=== PATIENT | male | born 1950 | race Two or more races ===

== ENCOUNTER → 2016-04-16 08:07 | Day surgery (SDC) | payer MEDICARE, BC ==
[~2016-04-16 08:07] MED LIST: Acetaminophen TAB* 325 MG PO PRN; Buffered Lidocaine 1% SYR 3ML* 3 ML/SYR SYRINGE INTRADERM ONE; Bupivacaine 0.5% W/EPI SDV* 30 ML VIAL ONE; Dexamethasone IV* 4 MG/ML 1 ML (4 MG) ONE; DiMENhydriNATE IV* 50 MG/ML VIAL IV PUSH PRN; DiMENhydriNATE IV* 50 MG/ML VIAL ONE; EPINEPHrine AMP 1 MG/ML ONE; Famotidine IV* 10 MG/ML 2 ML (20 mg) IV ONE; Famotidine IV* 10 MG/ML 2 ML (20 mg) ONE; HYDROmorphone INJ* 1 MG/ML CARPUJECT SYRINGE IV PRN; KETAMINE HCL* 50 MG/ML 10 ML VIAL ONE; Ketorolac INJ* 30 MG/ML 1 ML VIAL ONE; Lidocaine 2% PF * 5 ML VIAL ONE; Midazolam* 1 MG/ML 5 ML VIAL (5 MG) ONE; Ondansetron INJ* 2 MG/ML VIAL ONE; Phenylephrine IV* 40 MCG/ML 10 ML SYRINGE ONE; Propofol* 10 MG/ML 20 ML BTL IV PUSH ONE; ROPIVACAINE 5 MG/ML 30 ML BTL (0.5%) ONE; ceFAZolin 2 GM PREMIX (*) 2 GM/50 ML BAG IVPB ONE; fentaNYL* 50 MCG/ML 2 ML VIAL (100 MCG VIAL) ONE; oxyCODONE/Acetamin 5/325 MG* TAB PO PRN
[2016-04-16 19:38] VITALS: BP 122/70
--- NOTE | 2016-04-19 04:18 | OP ---
DATE OF OPERATION: 04/16/16 - [facility] DATE OF : 52 SURGEON: Mahin Tomas MD MANUFACTURING DEVELOPMENT ENGINEER: EMELINA Rowell ANESTHESIOLOGIST: Viola Bronson MD ANESTHESIA: General anesthesia, LMA, regional interscalene block. PRE-OP DIAGNOSES: 1. Right shoulder rotator cuff tear, acute on chronic. 2. Right shoulder subacromial impingement. 3. Right shoulder acromioclavicular joint arthritis. 4. Right shoulder possible proximal biceps tendinitis and/or superior labral tear. POST-OP DIAGNOSES: 1. Right shoulder massive rotator cuff tear, involving supraspinatus and infraspinatus, retracted. 2. Right shoulder subacromial impingement. 3. Right shoulder acromioclavicular joint arthritis. 4. Right shoulder superior labral tear and proximal biceps tendinosis. OPERATIVE PROCEDURE: 1. Right shoulder arthroscopic examination under anesthesia. 2. Right shoulder arthroscopic massive rotator cuff tendon repair, supraspinatus, infraspinatus, double row. 3. Right shoulder arthroscopic subacromial decompression. 4. Right shoulder arthroscopic distal clavicle resection. 5. Right shoulder extensive debridement, arthroscopic, including superior labrum, and subacromial bursitis, and tissue adhering the undersurface of the rotator cuff to the labrum. 6. Right shoulder arthroscopic proximal biceps tendon release. INDICATIONS: The patient is a 66-year-old man, a former [employer] employee, right-hand dominant, who presented to me with pain in the right shoulder for 1.5 years, that started when he was doing much house painting and then recurred in July of 2015 and persisted. Much pain with activities of daily living, especially overhead activity. Much pain in sleep. The patient then fell on to the shoulder in mid January which worsened it again. He responded insufficiently in a nonoperative management which included a cortisone injection subacromially, ibuprofen as needed, and physical therapy, a long course of it. Physical examination showed some pain and weakness with supraspinatus and some pain with infraspinatus stress testing. Positive Neer and Mcgrath tests. X-ray showed AC joint arthritis, an inferior osteophyte of both the clavicle and the acromion and a small lateral acromial spur. There was some trace superiorization of the humeral head visible on x-ray. MRI demonstrated AC joint osteoarthritis and a full thickness complete with rotator cuff tear of the supraspinatus measured at 2.4 cm x 2.3 cm. Sagittal slices showed 50% atrophy of the supraspinatus muscle mass and acromial humeral distance on MRI was 8.1 mm. 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 The patient opted for surgical management. I told him given the amount of fatty infiltration of the supraspinatus on sagittal views, it was not a foregone conclusion that this would be a repairable rotator cuff tear. I therefore booked this is an attempted rotator cuff repair. ANTIBIOSIS: 2 g Ancef IV. IV FLUIDS: See Anesthesia note. COMPLICATIONS: None. SPECIMEN: None. IMPLANTS: Mitek Healix 5.5-mm double loaded suture anchors x2. Mitek Healix knotless 5-mm suture anchor x1. FiberWire #2 sutures x2, Arthrex. ESTIMATED BLOOD LOSS: Minimal. DESCRIPTION OF PROCEDURE: Preoperative written consent. Operative extremity was marked in the preoperative holding. The patient was taken back to the operating room and placed supine on operating room table. Regional anesthetic block performed. The patient was placed in the lateral decubitus position with the right shoulder up. All bony prominences padded, axillary roll placed, caldwell bag insufflated. The right upper extremity was placed in 10 pounds of traction. Right shoulder was prepped and draped. A surgical time-out was performed. 20 cc of normal saline was infused into the glenohumeral joint from posterior. A posterior glenohumeral joint portal was established using standard technique. Diagnostic arthroscopy was commenced. An anterior glenohumeral joint portal was established under direct visualization. Intraarticularly, I saw clearly a large full thickness supraspinatus rotator cuff tear. There was a superior labrum tear with over 5 mm of lift off using the arthroscopic probe. Also, when I pulled the biceps tendon into the joint, there were some erythematous bands of vertical tissue demonstrating some tendinosis in it. Therefore, I used arthroscopic scissors to cut the proximal biceps tendon near its origin. I then used a shaver to debride the superior labral tear. Instruments and fluid were removed from the glenohumeral joint. I entered the subacromial space from posterior and anterior and then established a lateral subacromial joint portal. I debrided a significant amount of bursitic tissue. I visualized the rotator cuff tendon tear. After I debrided a significant amount of bursitic tissue, I was able to better visualize the tear. It included clearly the full width of the supraspinatus tendon but also included the anterior part of the infraspinatus tendons, so definitely a two-tendon tear. I freshened the rotator cuff footprint with an arthroscopic bur. I noted that the posterior aspect of the rotator cuff tendon tear had an intralaminar split in it, so there were two leaflets of tendon there. I then did a subacromial decompression removing approximately 6 mm of the undersurface of the acromion. Undersurface of the acromion was significant for some clear spurs of the acromion very medial at the level of the AC joint but also sort of posterior to the AC joint that I debrided. I then spent some time on freeing up the under-surface of the rotator cuff tendon from the glenoid labrum. This increased the mobility of the rotator cuff tear. I did that with the arthroscopic shaver and with a switching stick, being very careful not to venture too far medial with these instruments. Using a rotator cuff grasper, I tested the mobilization of the tendon. The anterior and posterior components of the tear were clearly more mobile than the midpoint of the tear. This made me appreciate that the tear was very much acting as if it were a U-shaped tear. Therefore, I placed two [id number] stitches in the rotator cuff tendon tear. I did so using a straight Mite[employer] Imagination YANET device and I placed two simple stitches each with FiberWire #2 suture. This converted this tear in to a more of a crescent- shaped classic tear. I again checked the excursion of the tendon and found that the tendon in fact would easily come to the footprint and this made me hopeful for a double row repair, which I did not think would be possible preoperatively. I medialized the medial edge of the footprint, perhaps 2 to 3 mm, trying to take tension off the repair. I then through superolateral portal, placed two medial row anchors using double-loaded Mitek Healix anchors. I placed horizontal mattress stitches in rotator cuff tendon using a Mite[employer] YANET passer. This brought tendon very nicely to bone but I wanted to further improve the fixation, so I took sutures from the medial row and placed one lateral row anchor using a Mitek Healix knotless anchor. The repair was stable to arthroscopic probing as well as range of motion of the shoulder. I then did a distal clavicle resection removing 8 mm of the distal end of the clavicle with an arthroscopic bur. I removed instruments and fluid from the subacromial space. I closed the skin incisions with figure-of-8 stitches using nylon 4-0 suture. Xeroform, 4x4s, ABDs, foam tape. DISPOSITION: The patient was discharged home when medically stable. The patient will follow up with me in 10 to 14 days postoperatively. The patient was given antibiotics, Percocet, and aspirin. The patient will remain in a sling with abduction pillow, which was given postoperatively. [id number] #: [id number] MAGGIE
== END | disposition home or self-care (01) ==
LOC: OR 08:07
PROVIDERS: ATTEND Orthopaedic Surgery
DX: S46.011A Strain of muscle(s) and tendon(s) of the rotator cuff of right shoulder, initial encounter (principal); M75.41 Impingement syndrome of right shoulder; M19.011 Primary osteoarthritis, right shoulder; S43.491A Other sprain of right shoulder joint, initial encounter; Z87.891 Personal history of nicotine dependence; W19.XXXA Unspecified fall, initial encounter; Y92.9 Unspecified place or not applicable
CPT/HCPCS: 36415; 86803; J0171; J0690; J1100; J1240; J1885; J2250; J2405; J2704; J2795; J3010